=== PATIENT | female | born 1985 | race Asian ===

== ENCOUNTER 2019-08-12 11:33 | Inpatient (IN) | payer MEDICAID ==
[~2019-08-12] VITALS: Ht 165.1 cm; Wt 84.8 kg
[~2019-08-12 11:33] MED LIST: FERR90TA PO; IBUP-974 PO; PREN1SGL25 PO
[2019-08-12] MEDS ORDERED: OSC500 PO (12:04)
[2019-08-12 12:49] LABS: BASOPHILS # (AUTO) 0.1 K/uL (0.00-0.22); BASOPHILS % (AUTO) 0.4 % (0.0-2.0); EOSINOPHILS # (AUTO) 0.1 K/uL (0-0.4); EOSINOPHILS % (AUTO) 0.6 % (0.0-4.0); HEMATOCRIT 42.4 % (36-48); HEMOGLOBIN 14.2 g/dL (12.0-16.0); LYMPHOCYTES # (AUTO) 1.2 K/uL (2.5-16.5); LYMPHOCYTES % (AUTO) 9.6 % (20.5-51.1); MEAN CORPUSCULAR HEMOGLOBIN 32 pg (27-31); MEAN CORPUSCULAR HGB CONC 34 g/dL (33-37); MEAN CORPUSCULAR VOLUME 93.8 fL (80-94); MONOCYTES # (AUTO) 0.8 K/uL (0.8-1.0); MONOCYTES % (AUTO) 6.6 % (1.7-9.3); NEUTROPHILS # (AUTO) 10.3 K/uL (1.8-7.7); NEUTROPHILS % (AUTO) 82.8 % (42.2-75.2); PLATELET COUNT (AUTO) 276 K/uL (140-450); RED BLOOD CELL COUNT(AUTO) 4.52 MIL/uL (4.20-5.40); RED CELL DISTRIBUTION WIDTH 13.7 % (11.6-13.7); WHITE BLOOD COUNT (AUTO) 12.5 K/uL (4.8-10.8)
[2019-08-12 13:03] LABS: ANION GAP 12.9 (8-16); CARBON DIOXIDE 25.2 mmol/L (21-32); CREATININE 0.7 mg/dL (0.6-1.3); POTASSIUM 4.1 mmol/L (3.5-5.1)
[2019-08-12 13:06] LABS: PROTHROMBIN TIME 8.7 secs (10.8-13.4)
[2019-08-12 13:09] LABS: ALBUMIN 3.1 g/dL (3.4-5.0); TOTAL BILIRUBIN 0.5 mg/dL (0.0-1.0)
[2019-08-12] MEDS: BETAMETH ACET/BETAMETH NA PH 30 MG/5 ML VIAL IM SCH (13:21)
[2019-08-12 13:35] LABS: URIC ACID 4.3 mg/dL (2.6-7.2)
[2019-08-12] MEDS ORDERED: INFLUENZA VACCINE QUAD 0.5 ML SYR IMVAC PRN (16:15)
[2019-08-12 16:16] VITALS: BP 152/95
--- NOTE | 2019-08-13 06:37 | NUR ---
PATIENT HAS BEEN SCREENED AND CATEGORIZED LOW NUTRITION RISK. PATIENT WILL BE SEEN WITHIN 7 DAYS OF ADMISSION. 08/19/19 IQRA ORTEGA MS, RDN
[2019-08-13] MEDS: BETAMETH ACET/BETAMETH NA PH 30 MG/5 ML VIAL IM SCH (13:21)
[2019-08-15 07:07] LABS: CHLAMYDIA TRACHOMATIS AMP DNA Negative (Negative)
== END 2019-08-13 14:00 | disposition home or self-care (01) | DRG 566 ==
LOC: MFCC 11:33 → OBSVTOIN 11:49
PROVIDERS: ADMIT Obstetrics & Gynecology; ATTEND Obstetrics & Gynecology
DX: O13.3 Gestational [pregnancy-induced] hypertension without significant proteinuria, third trimester (principal); Z3A.32 32 weeks gestation of pregnancy
CPT/HCPCS: 36415; 59025; 76819; 80053; 81000; 84157; 84550; 85025; 85384; 85610; 85730; 87491; 96372; G0378; J0702; Q0092

== ENCOUNTER 2019-08-27 17:11 | Emergency (ER) | payer MEDICAID ==
[~2019-08-27] VITALS: Ht 165.1 cm; Wt 81.6 kg
[~2019-08-27 17:11] MED LIST changes: -IBUP-974 PO; +OSC500 PO
[2019-08-27 17:16] VITALS: BP 144/104
--- NOTE | 2019-08-27 17:21 | NUR ---
Patient being evaluated by DR KHAN at bedside. WAIT AT [facility].
--- NOTE | 2019-08-27 18:13 | NUR ---
PT AMBULATED TO ER BED 08
--- NOTE | 2019-08-27 18:34 | NUR ---
PER DR KHAN, NO HR NEEDS TO BE FOUND WITH DOPPLER
--- NOTE | 2019-08-27 18:47 | NUR ---
C/O L FACIAL DROP AND HEADACHE X LAST NIGHT. 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 SPEECH CLEAR AND FULL PT ALSO REPORTS 34 WEEKS, BUT DENIES VAGINAL BLEEDING, CRAMPING, OR OTHER CONCERNS WITH . 3, LIVING 2, NO ABORTIONS OR MISCARRIAGES PAIN 3/10 VS STABLE. PT ALERT AND AWAKE, AMBULATOR WITH STEADY GAIT. MED HX:DENIES RX- PRENATALS
[2019-08-27 19:11] VITALS: BP 138/81
--- NOTE | 2019-08-27 19:11 | NUR ---
Patient discharged with v/s stable. Written and verbal after care instructions given and explained. Patient alert, oriented and verbalized understanding of instructions. Ambulatory with steady gait. All questions addressed prior to discharge. ID band removed. Patient advised to follow up with PMD. Rx of ACYCLOVIR given. Patient educated on indication of medication including possible reaction and side effects. Opportunity to ask questions provided and answered.
== END 2019-08-27 19:11 | disposition home or self-care (01) ==
LOC: MED 17:11
DX: O99.353 Diseases of the nervous system complicating pregnancy, third trimester (principal); G51.0 Bell's palsy; Z3A.34 34 weeks gestation of pregnancy; Z98.890 Other specified postprocedural states; Z79.899 Other long term (current) drug therapy
CPT/HCPCS: 99283

== ENCOUNTER 2019-09-12 09:52 | Inpatient (IN) | payer MEDICAID ==
[~2019-09-12] VITALS: Ht 165.1 cm; Wt 84.8 kg
[2019-09-12] MEDS ORDERED: CITRIC ACID/SODIUM CITRATE 30 ML UDC PO SCH (11:25)
[2019-09-12] MEDS ORDERED: LACTATED RINGERS 1,000 ML IV SCH (11:25)
[2019-09-12 11:54] LABS: BASOPHILS % (AUTO) 0.5 % (0.0-2.0); EOSINOPHILS # (AUTO) 0.1 K/uL (0-0.4); EOSINOPHILS % (AUTO) 1.2 % (0.0-4.0); HEMATOCRIT 39.2 % (36-48); HEMOGLOBIN 13.2 g/dL (12.0-16.0); LYMPHOCYTES # (AUTO) 1.4 K/uL (2.5-16.5); LYMPHOCYTES % (AUTO) 15.6 % (20.5-51.1); MEAN CORPUSCULAR HEMOGLOBIN 32 pg (27-31); MEAN CORPUSCULAR HGB CONC 34 g/dL (33-37); MEAN CORPUSCULAR VOLUME 93.7 fL (80-94); MONOCYTES # (AUTO) 0.5 K/uL (0.8-1.0); MONOCYTES % (AUTO) 5.6 % (1.7-9.3); NEUTROPHILS # (AUTO) 7.1 K/uL (1.8-7.7); NEUTROPHILS % (AUTO) 77.1 % (42.2-75.2); PLATELET COUNT (AUTO) 231 K/uL (140-450); RED BLOOD CELL COUNT(AUTO) 4.18 MIL/uL (4.20-5.40); RED CELL DISTRIBUTION WIDTH 13.8 % (11.6-13.7); WHITE BLOOD COUNT (AUTO) 9.3 K/uL (4.8-10.8)
[2019-09-12 12:52] LABS: ALBUMIN 2.8 g/dL (3.4-5.0); ANION GAP 15.8 (8-16); CARBON DIOXIDE 23.4 mmol/L (21-32); CREATININE 0.5 mg/dL (0.6-1.3); POTASSIUM 4.2 mmol/L (3.5-5.1); TOTAL BILIRUBIN 0.5 mg/dL (0.0-1.0)
[2019-09-12] MEDS ORDERED: BUPIVACAINE-MPF 0.75% 10 ML VIAL INJ ONE (13:35)
[2019-09-12] MEDS ORDERED: MORPHINE PRES FREE 10 MG/10 ML AMP IV ONE (13:35)
[2019-09-12 13:40] LABS: APPEARANCE,URINE CLEAR (CLEAR); BILIRUBIN,URINE NEGATIVE (NEGATIVE); BLOOD, URINE NEGATIVE (NEGATIVE); COLOR,URINE DARK YELLOW (YELLOW); LEUKOCYTE ESTERASE ,URINE NEGATIVE (NEGATIVE); NITRITE, URINE NEGATIVE (NEGATIVE); PH,URINE 7.5 (5.0-9.0); UGLUCOSE NEGATIVE (NEGATIVE)
[2019-09-12] MEDS ORDERED: OXYTOCIN 20 UNITS in LACTATED RINGERS 1,000 ML IV SCH (14:04)
[2019-09-12] MEDS ORDERED: diphenhydrAMINE 50 MG/ML VIAL IVP PRN ×2 (14:05)
[2019-09-12] MEDS ORDERED: HYDROmorphone 1 MG/ML AMP IVP PRN (14:05)
[2019-09-12] MEDS ORDERED: MEPERIDINE 25 MG/ML SYR IVP PRN (14:05)
[2019-09-12] MEDS ORDERED: ONDANSETRON 4 MG/2 ML VIAL IVP PRN ×2 (14:05)
[2019-09-12] MEDS ORDERED: NALOXONE 0.4 MG/ML VIAL IVP PRN ×3 (14:05)
[2019-09-12] MEDS ORDERED: NALBUPHINE 10 MG/ML AMP IVP PRN (14:05)
[2019-09-12 14:53] LABS: RAPID PLASMA REAGIN NON-REACTIVE (Non Reactiv)
[2019-09-12] MEDS ORDERED: OXYTOCIN 20 UNITS/LR PREMIX 1,000 ML IV ONE (14:57)
--- NOTE | 2019-09-12 15:08 | NUR ---
PATIENT HAS BEEN SCREENED AND CATEGORIZED LOW NUTRITION RISK. PATIENT WILL BE SEEN WITHIN 7 DAYS OF ADMISSION. 09/18/[address]
[2019-09-12] MEDS ORDERED: AMPICILLIN 1,000 MG VIAL ONE (17:07)
[2019-09-12] MEDS: KETOROLAC 30 MG/ML VIAL IM/IVP SCH (18:30)
[2019-09-12] MEDS ORDERED: oxyCODONE/APAP 5/325 MG 1 TAB TAB PO PRN (18:40)
[2019-09-12] MEDS ORDERED: TEMAZEPAM 15 MG CAP PO PRN (18:40)
[2019-09-12] MEDS ORDERED: METHYLERGONOVINE 0.2 MG/ML AMP IM PRN (18:40)
[2019-09-12] MEDS ORDERED: BISACODYL 10 MG SUPP RC PRN (18:40)
[2019-09-12] MEDS: OXYTOCIN 20 UNITS in LACTATED RINGERS 1,000 ML IV SCH (19:28)
[2019-09-12] MEDS ORDERED: IBUPROFEN 600 MG TAB PO PRN (21:30)
[2019-09-12] MEDS: BISACODYL 5 MG TABEC PO SCH (21:32)
[2019-09-12] MEDS: SENNA 8.6 MG TAB PO SCH (21:32)
[2019-09-12] MEDS: DOCUSATE SOD/SENNA 50/8.6 MG 1 TAB PO SCH (21:34)
[2019-09-13] MEDS: OXYTOCIN 20 UNITS in LACTATED RINGERS 1,000 ML IV SCH (02:38)
[2019-09-13] MEDS ORDERED: OXYTOCIN 20 UNITS/LR PREMIX 1,000 ML IV ONE (03:58)
[2019-09-13] MEDS: KETOROLAC 30 MG/ML VIAL IM/IVP SCH (06:28)
[2019-09-13 08:37] LABS: BASOPHILS # (AUTO) 0.1 K/uL (0.00-0.22); BASOPHILS % (AUTO) 0.5 % (0.0-2.0); EOSINOPHILS # (AUTO) 0.1 K/uL (0-0.4); EOSINOPHILS % (AUTO) 0.8 % (0.0-4.0); LYMPHOCYTES # (AUTO) 1.6 K/uL (2.5-16.5); LYMPHOCYTES % (AUTO) 12.3 % (20.5-51.1); MEAN CORPUSCULAR HEMOGLOBIN 31 pg (27-31); MEAN CORPUSCULAR HGB CONC 34 g/dL (33-37); MEAN CORPUSCULAR VOLUME 93.4 fL (80-94); MONOCYTES # (AUTO) 0.9 K/uL (0.8-1.0); MONOCYTES % (AUTO) 6.5 % (1.7-9.3); NEUTROPHILS # (AUTO) 10.4 K/uL (1.8-7.7); NEUTROPHILS % (AUTO) 79.9 % (42.2-75.2); PLATELET COUNT (AUTO) 226 K/uL (140-450); RED BLOOD CELL COUNT(AUTO) 4.18 MIL/uL (4.20-5.40); RED CELL DISTRIBUTION WIDTH 13.7 % (11.6-13.7); WHITE BLOOD COUNT (AUTO) 13.1 K/uL (4.8-10.8)
[2019-09-13] MEDS: SIMETHICONE 80 MG TAB.CHEW PO PRN ×3 (10:26→18:11)
[2019-09-13] MEDS: BISACODYL 5 MG TABEC PO SCH ×2 (10:26→21:01)
[2019-09-13] MEDS: HYDROcodone/APAP 5/325 MG 1 TAB TAB PO PRN ×2 (18:11→23:17)
[2019-09-13] MEDS: DOCUSATE SOD/SENNA 50/8.6 MG 1 TAB PO SCH (21:01)
[2019-09-13] MEDS: SENNA 8.6 MG TAB PO SCH (21:02)
[2019-09-14] MEDS ORDERED: INFLUENZA VACCINE QUAD 0.5 ML SYR IMVAC PRN (05:35)
[2019-09-14] MEDS: HYDROcodone/APAP 5/325 MG 1 TAB TAB PO PRN ×3 (08:26→21:21)
[2019-09-14] MEDS: BISACODYL 5 MG TABEC PO SCH ×2 (08:27→21:24)
[2019-09-14] MEDS: SENNA 8.6 MG TAB PO SCH (21:22)
[2019-09-14] MEDS: DOCUSATE SOD/SENNA 50/8.6 MG 1 TAB PO SCH (21:23)
[2019-09-15] MEDS ORDERED: CAMERA MC ONE (03:35)
[2019-09-15] MEDS: HYDROcodone/APAP 5/325 MG 1 TAB TAB PO PRN (08:27)
[2019-09-15] MEDS: BISACODYL 5 MG TABEC PO SCH (08:27)
[2019-09-15] MEDS ORDERED: FERR-252 PO (08:38)
[2019-09-15] MEDS ORDERED: ACET-5629 PO (08:38)
[2019-09-15] MEDS ORDERED: DOCU-299 PO (08:38)
[2019-09-15] MEDS ORDERED: IBUP-2213 PO (08:38)
== END 2019-09-15 11:45 | disposition home or self-care (01) | DRG 540 ==
LOC: MLD 09:52 → MFCC 17:06
PROVIDERS: ADMIT Obstetrics & Gynecology; ATTEND Obstetrics & Gynecology
PROC: 10D00Z1 Extraction of Products of Conception, Low, Open Approach (ICD-10-PCS; principal; 2019-09-12 12:00)
PROC: 3E0234Z Introduction of Serum, Toxoid and Vaccine into Muscle, Percutaneous Approach (ICD-10-PCS; 2019-09-14)
DX: O34.211 Maternal care for low transverse scar from previous cesarean delivery (principal); O99.354 Diseases of the nervous system complicating childbirth; Z37.0 Single live birth; O13.4 Gestational [pregnancy-induced] hypertension without significant proteinuria, complicating childbirth; G51.0 Bell's palsy; Z3A.37 37 weeks gestation of pregnancy; Z23 Encounter for immunization
CPT/HCPCS: 36415; 80053; 81003; 85025; 86592; 86886; 86900; 86901; 87081; 90715; J0290; J0690; J1885; J2270; J2405; J2590; J3490; J7060

== ENCOUNTER 2021-11-14 12:08 | Observation (INO) | payer MEDICAID ==
[~2021-11-14] VITALS: Ht 165.1 cm; Wt 90.7 kg
[~2021-11-14 12:08] MED LIST changes: +ACET-5629 PO; +DOCU-299 PO; -FERR90TA PO; +IBUP-2213 PO; -OSC500 PO; -PREN1SGL25 PO
[2021-11-14 12:35] VITALS: BP 139/86
[2021-11-14 13:58] LABS: APPEARANCE,URINE CLEAR (CLEAR); BASOPHILS % (AUTO) 0.5 % (0.0-2.0); BILIRUBIN,URINE NEGATIVE (NEGATIVE); BLOOD, URINE NEGATIVE (NEGATIVE); COLOR,URINE YELLOW (YELLOW); EOSINOPHILS # (AUTO) 0.1 K/uL (0-0.4); HEMATOCRIT 37.7 % (36-48); LEUKOCYTE ESTERASE ,URINE NEGATIVE (NEGATIVE); LYMPHOCYTES # (AUTO) 1.7 K/uL (2.5-16.5); LYMPHOCYTES % (AUTO) 17.7 % (20.5-51.1); MEAN CORPUSCULAR HEMOGLOBIN 31 pg (27-31); MEAN CORPUSCULAR HGB CONC 34 g/dL (33-37); MEAN CORPUSCULAR VOLUME 90.7 fL (80-94); MONOCYTES # (AUTO) 0.6 K/uL (0.8-1.0); MONOCYTES % (AUTO) 6.7 % (1.7-9.3); NEUTROPHILS % (AUTO) 74.1 % (42.2-75.2); NITRITE, URINE NEGATIVE (NEGATIVE); PLATELET COUNT (AUTO) 263 K/uL (140-450); RED BLOOD CELL COUNT(AUTO) 4.16 MIL/uL (4.20-5.40); RED CELL DISTRIBUTION WIDTH 13.6 % (11.6-13.7); UGLUCOSE NEGATIVE (NEGATIVE); WHITE BLOOD COUNT (AUTO) 9.5 K/uL (4.8-10.8)
[2021-11-14 14:21] LABS: ALBUMIN 2.5 g/dL (3.4-5.0); ANION GAP 9.5 (8-16); CARBON DIOXIDE 23.1 mmol/L (21-32); CREATININE 0.5 mg/dL (0.6-1.3); POTASSIUM 3.6 mmol/L (3.5-5.1); TOTAL BILIRUBIN 0.4 mg/dL (0.0-1.0)
[2021-11-14 14:41] LABS: URINE TOTAL PROTEIN 23.5 mg/dL (0-12)
[2021-11-14] MEDS ORDERED: BETAMETH ACET/BETAMETH NA PH 30 MG/5 ML VIAL IM ONE (15:04)
[2021-11-14] MEDS ORDERED: BETAMETH ACET/BETAMETH NA PH 30 MG/5 ML VIAL IM SCH (15:05)
[2021-11-14 15:09] LABS: PROTHROMBIN TIME 9.1 secs (10.8-13.4)
== END 2021-11-14 15:49 | disposition home or self-care (01) ==
LOC: MLD 12:08
PROVIDERS: ADMIT Obstetrics & Gynecology; ATTEND Obstetrics & Gynecology
DX: O13.3 Gestational [pregnancy-induced] hypertension without significant proteinuria, third trimester (principal); Z3A.33 33 weeks gestation of pregnancy
CPT/HCPCS: 36415; 59025; 76817; 76819; 80053; 81003; 82570; 84550; 85025; 85384; 85610; 85730; 86886; 86900; 86901; 96372; G0378; G0379; J0702; Q0092

== ENCOUNTER 2021-11-15 14:49 | Observation (INO) | payer MEDICAID ==
[~2021-11-15] VITALS: Ht 165.1 cm; Wt 90.7 kg
[2021-11-15] MEDS ORDERED: BETAMETH ACET/BETAMETH NA PH 30 MG/5 ML VIAL IM SCH (15:00)
[2021-11-15 15:04] VITALS: BP 140/80
== END 2021-11-15 15:20 | disposition home or self-care (01) ==
LOC: MLD 14:49
PROVIDERS: ADMIT Obstetrics & Gynecology; ATTEND Obstetrics & Gynecology
DX: Z34.83 Encounter for supervision of other normal pregnancy, third trimester (principal); Z3A.33 33 weeks gestation of pregnancy
CPT/HCPCS: 59025; 96372; G0378; G0379; J0702

== ENCOUNTER 2021-12-08 14:25 | Observation (INO) | payer MEDICAID ==
[~2021-12-08] VITALS: Ht 165.1 cm; Wt 90.7 kg
[2021-12-08] MEDS ORDERED: PNV91TAB10 PO (15:10)
[2021-12-08] MEDS ORDERED: BETAMETH ACET/BETAMETH NA PH 30 MG/5 ML VIAL IM SCH (15:15)
[2021-12-08 15:22] VITALS: BP 186/86
[2021-12-08 17:03] LABS: BASOPHILS % (AUTO) 0.5 % (0.0-2.0); EOSINOPHILS # (AUTO) 0.1 K/uL (0-0.4); EOSINOPHILS % (AUTO) 1.2 % (0.0-4.0); HEMATOCRIT 38.3 % (36-48); HEMOGLOBIN 13.1 g/dL (12.0-16.0); LYMPHOCYTES # (AUTO) 1.7 K/uL (2.5-16.5); LYMPHOCYTES % (AUTO) 18.9 % (20.5-51.1); MEAN CORPUSCULAR HEMOGLOBIN 31 pg (27-31); MEAN CORPUSCULAR HGB CONC 34 g/dL (33-37); MEAN CORPUSCULAR VOLUME 90.7 fL (80-94); MONOCYTES # (AUTO) 0.8 K/uL (0.8-1.0); MONOCYTES % (AUTO) 8.4 % (1.7-9.3); NEUTROPHILS # (AUTO) 6.4 K/uL (1.8-7.7); PLATELET COUNT (AUTO) 261 K/uL (140-450); RED BLOOD CELL COUNT(AUTO) 4.22 MIL/uL (4.20-5.40); RED CELL DISTRIBUTION WIDTH 13.7 % (11.6-13.7)
[2021-12-08 17:16] LABS: ALBUMIN 2.4 g/dL (3.4-5.0); ANION GAP 13.9 (8-16); CARBON DIOXIDE 21.7 mmol/L (21-32); CREATININE 0.7 mg/dL (0.6-1.3); POTASSIUM 3.6 mmol/L (3.5-5.1); TOTAL BILIRUBIN 0.3 mg/dL (0.0-1.0); URIC ACID 4.8 mg/dL (2.6-7.2)
[2021-12-08 17:24] LABS: BILIRUBIN,URINE NEGATIVE (NEGATIVE); BLOOD, URINE NEGATIVE (NEGATIVE); LEUKOCYTE ESTERASE ,URINE 1+ (NEGATIVE); NITRITE, URINE NEGATIVE (NEGATIVE); UGLUCOSE NEGATIVE (NEGATIVE)
[2021-12-08 17:31] LABS: APPEARANCE,URINE HAZY (CLEAR); COLOR,URINE YELLOW (YELLOW)
[2021-12-09 22:06] LABS: RBC,URINE NONE SEEN /HPF (0-5)
== END 2021-12-08 18:03 | disposition home or self-care (01) ==
LOC: MLD 14:25
PROVIDERS: ADMIT Obstetrics & Gynecology; ATTEND Obstetrics & Gynecology
DX: O13.3 Gestational [pregnancy-induced] hypertension without significant proteinuria, third trimester (principal); Z20.822 Contact with and (suspected) exposure to COVID-19; Z3A.36 36 weeks gestation of pregnancy
CPT/HCPCS: 36415; 59025; 80053; 81001; 82570; 84550; 85025; 85384; 85610; 85730; 86870; 86886; 86900; 86901; 87086; 87426; G0378; G0379; J0702

== ENCOUNTER 2021-12-15 07:29 | Inpatient (IN) | payer MEDICAID ==
[~2021-12-15] VITALS: Ht 165.1 cm; Wt 90.7 kg
[~2021-12-15 07:29] MED LIST changes: -ACET-5629 PO; -DOCU-299 PO; -IBUP-2213 PO; +PNV91TAB10 PO
[2021-12-15] MEDS ORDERED: CITRIC ACID/SODIUM CITRATE 30 ML UDC PO SCH (07:50)
[2021-12-15] MEDS ORDERED: LACTATED RINGERS 500 ML IV SCH (07:50)
[2021-12-15 08:21] LABS: APPEARANCE,URINE CLEAR (CLEAR); BILIRUBIN,URINE NEGATIVE (NEGATIVE); BLOOD, URINE NEGATIVE (NEGATIVE); COLOR,URINE YELLOW (YELLOW); LEUKOCYTE ESTERASE ,URINE TRACE (NEGATIVE); NITRITE, URINE NEGATIVE (NEGATIVE); PH,URINE 6.5 (5.0-9.0); UGLUCOSE NEGATIVE (NEGATIVE)
[2021-12-15 08:31] LABS: BASOPHILS # (AUTO) 0.1 K/uL (0.00-0.22); BASOPHILS % (AUTO) 0.8 % (0.0-2.0); EOSINOPHILS # (AUTO) 0.2 K/uL (0-0.4); EOSINOPHILS % (AUTO) 1.6 % (0.0-4.0); HEMATOCRIT 39.5 % (36-48); HEMOGLOBIN 13.6 g/dL (12.0-16.0); LYMPHOCYTES # (AUTO) 2.1 K/uL (2.5-16.5); LYMPHOCYTES % (AUTO) 21.2 % (20.5-51.1); MEAN CORPUSCULAR HEMOGLOBIN 31 pg (27-31); MEAN CORPUSCULAR HGB CONC 35 g/dL (33-37); MEAN CORPUSCULAR VOLUME 90.5 fL (80-94); MONOCYTES % (AUTO) 9.9 % (1.7-9.3); NEUTROPHILS # (AUTO) 6.5 K/uL (1.8-7.7); NEUTROPHILS % (AUTO) 66.5 % (42.2-75.2); PLATELET COUNT (AUTO) 276 K/uL (140-450); RED BLOOD CELL COUNT(AUTO) 4.36 MIL/uL (4.20-5.40); RED CELL DISTRIBUTION WIDTH 13.6 % (11.6-13.7); WHITE BLOOD COUNT (AUTO) 9.8 K/uL (4.8-10.8)
[2021-12-15 08:35] LABS: ALBUMIN 2.7 g/dL (3.4-5.0); ANION GAP 13.5 (8-16); CARBON DIOXIDE 23.6 mmol/L (21-32); CREATININE 0.7 mg/dL (0.6-1.3); POTASSIUM 4.1 mmol/L (3.5-5.1); TOTAL BILIRUBIN 0.4 mg/dL (0.0-1.0)
[2021-12-15 08:37] LABS: RBC,URINE 0-5 /HPF (0-5); WBC,URINE 0-5 /HPF (0-5)
[2021-12-15 08:38] LABS: OTHER CASTS, URINE None Seen /LPF (None Seen)
[2021-12-15 08:41] LABS: PROTHROMBIN TIME 8.9 secs (10.8-13.4)
[2021-12-15 09:01] VITALS: BP 143/100
[2021-12-15] MEDS: LACTATED RINGERS 1,000 ML IV SCH ×2 (09:29→11:15)
[2021-12-15] MEDS ORDERED: MORPHINE PRES FREE 10 MG/10 ML AMP IV ONE (14:18)
--- NOTE | 2021-12-15 14:30 | NUR ---
PATIENT HAS BEEN SCREENED AND CATEGORIZED LOW NUTRITION RISK. PATIENT WILL BE SEEN WITHIN 7 DAYS OF ADMISSION. 12/21/[address]
[2021-12-15] MEDS ORDERED: diphenhydrAMINE 50 MG/ML VIAL IVP PRN (14:45)
[2021-12-15] MEDS ORDERED: NALOXONE 0.4 MG/ML VIAL IVP PRN (14:45)
[2021-12-15] MEDS ORDERED: ONDANSETRON 4 MG/2 ML VIAL IVP PRN (14:45)
[2021-12-15] MEDS ORDERED: KETOROLAC 30 MG/ML VIAL IVP PRN (14:45)
[2021-12-15] MEDS ORDERED: OXYTOCIN 20 UNITS in LACTATED RINGERS 1,000 ML IV SCH (14:45)
[2021-12-15] MEDS ORDERED: OXYTOCIN 20 UNITS/LR PREMIX 1,000 ML IV ONE (15:32)
[2021-12-15] MEDS ORDERED: MEASLES, MUMPS, AND RUBELLA 1 VIAL SQVAC ONE (16:20)
[2021-12-15] MEDS ORDERED: METHYLERGONOVINE 0.2 MG/ML AMP IM PRN (16:20)
[2021-12-15] MEDS ORDERED: bisacodyL 5 MG TABEC PO PRN (16:20)
[2021-12-15] MEDS ORDERED: oxyCODONE/APAP 5/325 MG 1 TAB TAB PO PRN (16:20)
[2021-12-15] MEDS ORDERED: MEASLES, MUMPS, AND RUBELLA 1 VIAL SQVAC PRN (16:55)
[2021-12-16] MEDS ORDERED: OXYTOCIN 20 UNITS in LACTATED RINGERS 1,000 ML IV SCH (04:00)
[2021-12-16] MEDS ORDERED: OXYTOCIN 20 UNITS/LR PREMIX 1,000 ML IV ONE (04:07)
[2021-12-16 05:47] LABS: BASOPHILS % (AUTO) 0.4 % (0.0-2.0); EOSINOPHILS # (AUTO) 0.1 K/uL (0-0.4); EOSINOPHILS % (AUTO) 0.5 % (0.0-4.0); HEMATOCRIT 36.3 % (36-48); HEMOGLOBIN 12.4 g/dL (12.0-16.0); LYMPHOCYTES # (AUTO) 1.6 K/uL (2.5-16.5); MEAN CORPUSCULAR HEMOGLOBIN 31 pg (27-31); MEAN CORPUSCULAR HGB CONC 34 g/dL (33-37); MEAN CORPUSCULAR VOLUME 90.9 fL (80-94); MONOCYTES # (AUTO) 0.9 K/uL (0.8-1.0); MONOCYTES % (AUTO) 7.6 % (1.7-9.3); NEUTROPHILS # (AUTO) 9.7 K/uL (1.8-7.7); NEUTROPHILS % (AUTO) 78.5 % (42.2-75.2); PLATELET COUNT (AUTO) 220 K/uL (140-450); RED BLOOD CELL COUNT(AUTO) 3.99 MIL/uL (4.20-5.40); RED CELL DISTRIBUTION WIDTH 13.7 % (11.6-13.7); WHITE BLOOD COUNT (AUTO) 12.4 K/uL (4.8-10.8)
[2021-12-16] MEDS ORDERED: IBUPROFEN 800 MG TAB PO PRN (08:00)
[2021-12-16] MEDS: SIMETHICONE 80 MG TAB.CHEW PO PRN ×3 (09:56→22:40)
[2021-12-16] MEDS: oxyCODONE/APAP 5/325 MG 1 TAB TAB PO PRN ×2 (15:43→22:39)
[2021-12-17] MEDS ORDERED: CAMERA MC ONE (01:51)
[2021-12-17] MEDS: oxyCODONE/APAP 5/325 MG 1 TAB TAB PO PRN (11:11)
== END 2021-12-17 14:50 | disposition home or self-care (01) | DRG 539 ==
LOC: MLD 07:29 → OBSVTOIN 07:29 → MFCC 16:26
PROVIDERS: ADMIT Obstetrics & Gynecology; ATTEND Obstetrics & Gynecology
PROC: 10D00Z1 Extraction of Products of Conception, Low, Open Approach (ICD-10-PCS; principal; 2021-12-17)
PROC: 0UB70ZZ Excision of Bilateral Fallopian Tubes, Open Approach (ICD-10-PCS; 2021-12-17)
DX: O13.4 Gestational [pregnancy-induced] hypertension without significant proteinuria, complicating childbirth (principal); E83.51 Hypocalcemia; O34.211 Maternal care for low transverse scar from previous cesarean delivery; O75.89 Other specified complications of labor and delivery; R82.71 Bacteriuria; E88.09 Other disorders of plasma-protein metabolism, not elsewhere classified; Z20.822 Contact with and (suspected) exposure to COVID-19; Z30.2 Encounter for sterilization; Z37.0 Single live birth; Z3A.37 37 weeks gestation of pregnancy
CPT/HCPCS: 36415; 80053; 81001; 85025; 85610; 85730; 86592; 86886; 86900; 86901; 87081; 87653-90; 88302; J0690; J1885; J2270; J2590; J7060; J7120